=== PATIENT | female | born 1950 | race Two or more races ===

== ENCOUNTER 2021-06-05 12:05 | Inpatient (IN) | payer OTHER ==
[~2021-06-05] VITALS: Ht 157.5 cm; Wt 85.0 kg
[2021-06-05] MEDS ORDERED: SODIUM CHLORIDE 0.9% 1,000 ML IV ONE ×2 (12:30→20:15)
[2021-06-05] MEDS ORDERED: SODIUM CHLORIDE 0.9% 1,000 ML IVB ONE (12:30)
[2021-06-05 13:20] LABS: Basophils # (auto) 0 10 ^3/uL (0-0.2); Basophils % (auto) 0.2 % (0.0-2.0); Eosinophils # (auto) 0 10 ^3/uL (0-0.8); Eosinophils % (auto) 0.1 % (0.0-7.0); Hematocrit 40.7 % (36.0-46.0); Hemoglobin 13.8 g/dL (12.2-16.2); Lymphocytes # (auto) 0.5 10 ^3/uL (0.4-5.4); Lymphocytes % (auto) 6.6 % (10.0-50.0); Mean Corpuscular Hemoglobin 30.5 pg (28.0-32.0); Mean Corpuscular Hgb Conc. 33.9 g/dL (32.0-36.0); Monocytes # (auto) 1.3 10 ^3/uL (0-1.3); Monocytes % (auto) 15.6 % (0.0-12.0); Neutrophils # (auto) 6.3 10 ^3/uL (1.6-8.6); Neutrophils % (auto) 77.5 % (37.0-80.0); Red Blood Cells 4.52 10^6/uL (4.0-5.20); Red Cell Distribution Width 12.8 % (11.8-14.3); White Blood Cell 8.1 10^3/uL (4.4-10.8)
[2021-06-05 13:30] LABS: INR 1.07 (0.9-1.15); Partial Thromboplastin Time 24.4 sec (23.6-33.0)
[2021-06-05 13:33] LABS: Albumin 2.8 g/dL (3.4-5.0); BUN/Creatinine Ratio 42.6; Calcium 7.2 mg/dL (8.5-10.1); Magnesium 2.8 mg/dL (1.6-2.6); Potassium 4.4 mmol/L (3.5-5.1)
[2021-06-05 13:35] LABS: Bilirubin, Total 0.6 mg/dL (0.2-1.0); Total Protein 5.9 g/dL (6.4-8.2)
[2021-06-05 13:37] LABS: Lactic Acid w/Reflex 2.7 mmol/L (0.4-2.0)
[2021-06-05] MEDS: NOREPINEPHRINE 8 MG/250ML KIT 250 ML IV SCH (14:42)
[2021-06-05 14:45] LABS: Urine Bacteria NONE SEEN /hpf (None Seen); Urine Blood Negative /uL (Negative); Urine Hyaline Cast FEW /lpf (0 - 2); Urine Mucus FEW (None Seen); Urine Specific Gravity 1.019 (1.001-1.035); Urine WBC 3 /hpf (0 - 5)
[2021-06-05] MEDS ORDERED: NITROGLYCERIN 0.4 MG SL TAB SL PRN (20:15)
[2021-06-05] MEDS ORDERED: MORPHINE SULFATE INJECTION 2 MG/ML SYRG IV PRN ×2 (20:15)
[2021-06-05] MEDS ORDERED: ONDANSETRON HCL 4 MG/2 ML VIAL IV PRN (20:15)
[2021-06-05 23:45] VITALS: BP 111/35
[2021-06-05 23:54] VITALS: BP 98/36
[2021-06-06] VITALS (91 sets, daily range): BP systolic 84–129; BP diastolic 30–85
[2021-06-06] MEDS ORDERED: NOREPINEPHRINE 8 MG/250ML KIT 250 ML IV ONE ×3 (00:52→14:13)
[2021-06-06] MEDS: NOREPINEPHRINE 8 MG/250ML KIT 250 ML IV SCH ×3 (01:03→19:19)
[2021-06-06 04:58] LABS: Basophils # (auto) 0 10 ^3/uL (0-0.2); Basophils % (auto) 0.2 % (0.0-2.0); Eosinophils # (auto) 0 10 ^3/uL (0-0.8); Eosinophils % (auto) 0.1 % (0.0-7.0); Hemoglobin 13.6 g/dL (12.2-16.2); Lymphocytes # (auto) 0.8 10 ^3/uL (0.4-5.4); Mean Corpuscular Hemoglobin 30.8 pg (28.0-32.0); Mean Corpuscular Hgb Conc. 34.8 g/dL (32.0-36.0); Mean Corpuscular Volume 88.4 fL (80.0-100.0); Monocytes # (auto) 1.4 10 ^3/uL (0-1.3); Monocytes % (auto) 16.3 % (0.0-12.0); Neutrophils # (auto) 6.2 10 ^3/uL (1.6-8.6); Neutrophils % (auto) 73.4 % (37.0-80.0); Nucleated Red Blood Cells % 0.1 %; Red Blood Cells 4.41 10^6/uL (4.0-5.20); Red Cell Distribution Width 13.5 % (11.8-14.3); White Blood Cell 8.4 10^3/uL (4.4-10.8)
[2021-06-06 05:18] LABS: Albumin 2.5 g/dL (3.4-5.0); Calcium 6.9 mg/dL (8.5-10.1); Potassium 4.1 mmol/L (3.5-5.1)
[2021-06-06 05:20] LABS: Bilirubin, Total 0.5 mg/dL (0.2-1.0); Total Protein 5.2 g/dL (6.4-8.2)
[2021-06-06] MEDS ORDERED: CHOL20007 PO (06:56)
[2021-06-06] MEDS ORDERED: LOSA-69 PO (06:56)
[2021-06-06] MEDS ORDERED: ALPR0.5T PO (06:56)
[2021-06-06] MEDS ORDERED: SODIUM CHLORIDE 0.9% 500 ML IV ONE (21:00)
[2021-06-06] MEDS ORDERED: HEPARIN SODIUM (PORCINE) 5000 UNITS/ML 1ML VIAL ONE (23:05)
[2021-06-06] MEDS: HEPARIN SODIUM (PORCINE) 5000 UNITS/ML 1ML VIAL SC SCH (23:11)
[2021-06-06] MEDS: SODIUM CHLORIDE 0.9% 1,000 ML IV SCH (23:13)
[2021-06-07] VITALS (93 sets, daily range): BP systolic 86–144; BP diastolic 11–56
[2021-06-07 03:32] LABS: Basophils # (auto) 0 10 ^3/uL (0-0.2); Basophils % (auto) 0.1 % (0.0-2.0); Eosinophils # (auto) 0 10 ^3/uL (0-0.8); Eosinophils % (auto) 0.1 % (0.0-7.0); Hematocrit 37.5 % (36.0-46.0); Hemoglobin 12.8 g/dL (12.2-16.2); Lymphocytes # (auto) 0.6 10 ^3/uL (0.4-5.4); Lymphocytes % (auto) 6.4 % (10.0-50.0); Mean Corpuscular Hemoglobin 30.6 pg (28.0-32.0); Mean Corpuscular Hgb Conc. 34.3 g/dL (32.0-36.0); Mean Corpuscular Volume 89.3 fL (80.0-100.0); Monocytes # (auto) 1.5 10 ^3/uL (0-1.3); Neutrophils # (auto) 7.5 10 ^3/uL (1.6-8.6); Neutrophils % (auto) 77.4 % (37.0-80.0); Nucleated Red Blood Cells % 0.1 %; Red Cell Distribution Width 13.4 % (11.8-14.3); White Blood Cell 9.7 10^3/uL (4.4-10.8)
[2021-06-07 03:47] LABS: Potassium 3.7 mmol/L (3.5-5.1)
[2021-06-07 03:52] LABS: Albumin 2.1 g/dL (3.4-5.0); BUN/Creatinine Ratio 71.3; Calcium 6.9 mg/dL (8.5-10.1); Magnesium 2.8 mg/dL (1.6-2.6)
[2021-06-07 03:53] LABS: Bilirubin, Total 0.4 mg/dL (0.2-1.0); Phosphorus 3.1 mg/dL (2.5-4.90); Total Protein 4.7 g/dL (6.4-8.2)
[2021-06-07] MEDS: SODIUM CHLORIDE 0.9% 1,000 ML IV SCH ×2 (04:50→12:51)
[2021-06-07] MEDS: PANTOPRAZOLE 40 MG/10 ML VIAL INJ IV SCH (09:56)
[2021-06-07] MEDS ORDERED: SODIUM CHLORIDE 0.9% 1,000 ML IV ONE (10:00)
[2021-06-07] MEDS ORDERED: SODIUM CHLORIDE 0.9% 2,400 ML IV ONE (10:00)
[2021-06-07] MEDS ORDERED: SODIUM CHLORIDE 0.9% 500 ML IV ONE (10:00)
[2021-06-07] MEDS: HEPARIN SODIUM (PORCINE) 5000 UNITS/ML 1ML VIAL SC SCH ×2 (10:05→21:43)
[2021-06-07 13:34] LABS: Anion Gap 8 (5-15); BUN/Creatinine Ratio 65.2; Blood Urea Nitrogen 60 mg/dL (7-18); Calcium 6.9 mg/dL (8.5-10.1); Carbon Dioxide 14 mmol/L (21-32); Chloride 125 mmol/L (98-107); GFR African American 77 mL/min; GFR Non-African American 64 mL/min; Glucose 107 mg/dL (74-106); Potassium 3.5 mmol/L (3.5-5.1); Sodium 147 mmol/L (136-145)
[2021-06-07] MEDS ORDERED: POTASSIUM CHL 20MEQ/100ML 100 ML IV ONE (14:30)
[2021-06-07] MEDS: SOD CHL 0.45% 1,000 ML IV SCH (14:30)
[2021-06-07] MEDS: NOREPINEPHRINE 8 MG/250ML KIT 250 ML IV SCH (16:15)
[2021-06-08] VITALS (79 sets, daily range): BP systolic 102–144; BP diastolic 36–71
[2021-06-08] MEDS: SOD CHL 0.45% 1,000 ML IV SCH ×3 (04:31→22:29)
[2021-06-08 05:47] LABS: Basophils # (auto) 0 10 ^3/uL (0-0.2); Eosinophils # (auto) 0.1 10 ^3/uL (0-0.8); Eosinophils % (auto) 2.2 % (0.0-7.0); Hemoglobin 11.5 g/dL (12.2-16.2); Lymphocytes # (auto) 0.8 10 ^3/uL (0.4-5.4); Mean Corpuscular Hemoglobin 30.2 pg (28.0-32.0); Mean Corpuscular Hgb Conc. 33.8 g/dL (32.0-36.0); Mean Corpuscular Volume 89.2 fL (80.0-100.0); Monocytes # (auto) 0.6 10 ^3/uL (0-1.3); Monocytes % (auto) 9.9 % (0.0-12.0); Neutrophils # (auto) 4.7 10 ^3/uL (1.6-8.6); Neutrophils % (auto) 74.9 % (37.0-80.0); Nucleated Red Blood Cells % 0.1 %; Red Blood Cells 3.81 10^6/uL (4.0-5.20); Red Cell Distribution Width 13.5 % (11.8-14.3); White Blood Cell 6.3 10^3/uL (4.4-10.8)
[2021-06-08 06:11] LABS: Albumin 1.8 g/dL (3.4-5.0); BUN/Creatinine Ratio 63.9; Calcium 7.1 mg/dL (8.5-10.1); Potassium 3.4 mmol/L (3.5-5.1)
[2021-06-08 06:13] LABS: Bilirubin, Total 0.3 mg/dL (0.2-1.0); Total Protein 4.2 g/dL (6.4-8.2)
[2021-06-08] MEDS: HEPARIN SODIUM (PORCINE) 5000 UNITS/ML 1ML VIAL SC SCH ×2 (09:35→21:26)
[2021-06-08] MEDS: POTASSIUM CHL 20MEQ/100ML 100 ML IV SCH ×2 (09:38→12:09)
[2021-06-08] MEDS: PANTOPRAZOLE 40 MG/10 ML VIAL INJ IV SCH ×2 (10:04→21:25)
[2021-06-08] MEDS: NOREPINEPHRINE 8 MG/250ML KIT 250 ML IV SCH (15:50)
[2021-06-08] MEDS: SUCRALFATE 1 GM/10 ML ORAL SUSP GT SCH ×2 (17:00→21:25)
[2021-06-09] VITALS (16 sets, daily range): BP systolic 108–140; BP diastolic 47–68
[2021-06-09] MEDS: SUCRALFATE 1 GM/10 ML ORAL SUSP GT SCH ×2 (06:53→11:13)
[2021-06-09] MEDS: HEPARIN SODIUM (PORCINE) 5000 UNITS/ML 1ML VIAL SC SCH (10:00)
[2021-06-09 10:03] LABS: BUN/Creatinine Ratio 35.6; Calcium 7.6 mg/dL (8.5-10.1); Potassium 3.5 mmol/L (3.5-5.1)
[2021-06-09] MEDS: PANTOPRAZOLE 40 MG/10 ML VIAL INJ IV SCH (11:00)
[2021-06-09] MEDS: NOREPINEPHRINE 8 MG/250ML KIT 250 ML IV SCH (16:15)
== END 2021-06-09 15:45 | disposition home or self-care (01) | DRG 388 ==
LOC: ER 12:05 → TELE 20:06 → UNDOADMOB 20:06 → TELE 20:35 → DOU IN ICU 21:49 → ICU CENTRL 23:31 → DOU IN ICU 06-06 17:09 → ICU CENTRL 06-06 17:35
PROVIDERS: ADMIT Hospitalist; ATTEND Hospitalist
PROC: 05HC33Z Insertion of Infusion Device into Left Basilic Vein, Percutaneous Approach (ICD-10-PCS; principal; 2021-06-06)
PROC: B54NZZA Ultrasonography of Left Upper Extremity Veins, Guidance (ICD-10-PCS; 2021-06-06)
PROC: 0D9670Z Drainage of Stomach with Drainage Device, Via Natural or Artificial Opening (ICD-10-PCS; 2021-06-07)
DX: K56.600 Partial intestinal obstruction, unspecified as to cause (principal); R57.1 Hypovolemic shock; N17.0 Acute kidney failure with tubular necrosis; E87.1 Hypo-osmolality and hyponatremia; N17.9 Acute kidney failure, unspecified; N18.5 Chronic kidney disease, stage 5; E44.0 Moderate protein-calorie malnutrition; G93.49 Other encephalopathy; E87.0 Hyperosmolality and hypernatremia; E11.21 Type 2 diabetes mellitus with diabetic nephropathy; K80.20 Calculus of gallbladder without cholecystitis without obstruction; E66.01 Morbid (severe) obesity due to excess calories; Z20.822 Contact with and (suspected) exposure to COVID-19; I12.9 Hypertensive chronic kidney disease with stage 1 through stage 4 chronic kidney disease, or unspecified chronic kidney disease; E87.6 Hypokalemia; I10 Essential (primary) hypertension; Z83.3 Family history of diabetes mellitus; Z68.33 Body mass index [BMI] 33.0-33.9, adult; Z88.8 Allergy status to other drugs, medicaments and biological substances; Z88.0 Allergy status to penicillin; Z90.710 Acquired absence of both cervix and uterus; Z91.041 Radiographic dye allergy status
CPT/HCPCS: 36415; 71045; 74018; 74176; 76775; 80048; 80053; 81001; 83036; 83605; 83690; 83735; 84100; 84484; 85025; 85610; 85730; 87040; 87081; 87086; 93005; 96360; 96361; 99291; C9113; G0378; J3480

== ENCOUNTER 2023-09-05 06:26 | Inpatient (IN) | payer OTHER ==
[~2023-09-05] VITALS: Ht 157.5 cm; Wt 77.7 kg
[2023-09-05] VITALS (14 sets, daily range): BP systolic 114–158; BP diastolic 65–84; PULSE 65–108; RESP 16–20; TEMP 97.9–98.7; O2SAT 92–98
[2023-09-05] MEDS: FAMOTIDINE (10MG/ML) 2ML VL IV ONE (06:49)
[2023-09-05] MEDS: TRANEXAMIC ACID 20 ML ONE (06:56)
[2023-09-05] MEDS: ROPIVACAINE 0.5% (5MG/ML) 20ML AMPULE IJ ONE (06:56)
[2023-09-05] MEDS: EPINEPHrine HCL 1 MG/1 ML AMP ONE ×2 (06:56→07:05)
[2023-09-05] MEDS ORDERED: ONDANSETRON HCL 4 MG/2 ML VIAL ONE (06:57)
[2023-09-05] MEDS ORDERED: fentaNYL CITRATE 100 MCG/2 ML VL ONE (06:57)
[2023-09-05] MEDS ORDERED: KETOROLAC TROMETH 30 MG/ML 1ML VIAL ONE (06:57)
[2023-09-05] MEDS ORDERED: PROPOFOL 10 MG/ML 20 ML IV ONE (06:57)
[2023-09-05] MEDS ORDERED: MIDAZOLAM HCL 2MG/2ML 2ml VIAL (1mg/ml) ONE (06:57)
[2023-09-05] MEDS ORDERED: GLYCOPYRROLATE 0.2 MG/ML 1ML VIAL ONE (06:57)
[2023-09-05] MEDS ORDERED: MORPHINE SULF PF 5 MG/10 ML VIAL ONE (06:58)
[2023-09-05] MEDS ORDERED: ePHEDrine SULFATE 50 MG/ML AMP ONE (06:58)
[2023-09-05] MEDS ORDERED: KETAMINE 50mg/ML 1ml syringe ONE (06:58)
[2023-09-05] MEDS ORDERED: PHENYLEPHRINE HCL 10 MG/ML VL ONE (06:58)
[2023-09-05] MEDS: ceFAZolin 2 GM/D5W50ml 50 ML IV ONE (07:02)
[2023-09-05] MEDS: BUPIVACAINE HCL 50 ML ONE (08:00)
[2023-09-05] MEDS: VANCOMYCIN HCL 1000 MG VL ONE (09:00)
[2023-09-05] MEDS ORDERED: ACETAMINOPHEN 325 MG TAB PO PRN (09:30)
[2023-09-05] MEDS ORDERED: oxyCODONE HCL 5MG TAB PO PRN ×2 (09:30)
[2023-09-05] MEDS ORDERED: KETOROLAC TROMETH 30 MG/ML 1ML VIAL IV PRN (09:30)
[2023-09-05] MEDS ORDERED: diphenhdrAMINE HCL 50 MG/1 ML VL IV PRN (09:30)
[2023-09-05] MEDS ORDERED: NALOXONE HCL 0.4 MG/ML VIAL IV PRN (09:30)
[2023-09-05] MEDS ORDERED: DexAMETHasone SOD PHOS 10MG/1ML VIAL INJ IV PRN (09:30)
[2023-09-05] MEDS: D5W/LACTATED RINGERS 1,000 ML IV SCH (09:41)
[2023-09-05] MEDS: ceFAZolin 1GM/50ML 100 ML IV ONE (15:01)
[2023-09-05] MEDS: PREGABALIN 25 MG CAP PO SCH (16:34)
[2023-09-05] MEDS: ONDANSETRON HCL 4 MG/2 ML VIAL IV ONE (16:34)
[2023-09-05] MEDS: ACETAMINOPHEN 325 MG TAB PO SCH (16:35)
[2023-09-05] MEDS: KETOROLAC TROMETH 30 MG/ML 1ML VIAL IV SCH (16:35)
[2023-09-05] MEDS: ceFAZolin 2 GM/D5W50ml 50 ML IV SCH (17:39)
[2023-09-05] MEDS ORDERED: DexAMETHasone SOD PHOS 10MG/1ML VIAL INJ IV ONE (18:54)
[2023-09-05] MEDS: ONDANSETRON HCL 4 MG/2 ML VIAL IV PRN (23:20)
[2023-09-06] VITALS (21 sets, daily range): BP systolic 129–174; BP diastolic 61–107; PULSE 70–110; RESP 16–20; TEMP 97.5–98.6; O2SAT 90–100
[2023-09-06 06:18] LABS: Basophils # (auto) 0 10 ^3/uL (0-0.2); Basophils % (auto) 0.6 % (0.0-2.0); Eosinophils # (auto) 0 10 ^3/uL (0-0.8); Eosinophils % (auto) 0.6 % (0.0-7.0); Hematocrit 32.7 % (36.0-46.0); Hemoglobin 11.1 g/dL (12.2-16.2); Lymphocytes # (auto) 0.7 10 ^3/uL (0.4-5.4); Lymphocytes % (auto) 9.6 % (10.0-50.0); Mean Corpuscular Hemoglobin 31.4 pg (28.0-32.0); Mean Corpuscular Volume 92.3 fL (80.0-100.0); Monocytes # (auto) 0.6 10 ^3/uL (0-1.3); Monocytes % (auto) 8.4 % (0.0-12.0); Neutrophils # (auto) 5.8 10 ^3/uL (1.6-8.6); Neutrophils % (auto) 80.8 % (37.0-80.0); Red Blood Cells 3.55 10^6/uL (4.0-5.20); White Blood Cell 7.2 10^3/uL (4.4-10.8)
[2023-09-06 06:26] LABS: Anion Gap 5 (5-15); Carbon Dioxide 25 mmol/L (20-30); Chloride 108 mmol/L (98-107); Potassium 4.1 mmol/L (3.5-5.1); Sodium 138 mmol/L (136-145)
[2023-09-06 06:27] LABS: Calcium 9.1 mg/dL (8.7-10.4)
[2023-09-06 06:32] LABS: BUN/Creatinine Ratio 15.4 (10.0-20.0); Blood Urea Nitrogen 16 mg/dL (9-23); Glucose 121 mg/dL (74-106)
[2023-09-06] MEDS: ASPirin 81 mg TAB PO SCH (08:47)
== END 2023-09-06 18:55 | disposition home or self-care (01) | DRG 470 ==
LOC: SUR 06:26 → TELE 09:27 → TELE-CENTR 15:24
PROVIDERS: ADMIT Orthopaedic Surgery; ATTEND Orthopaedic Surgery
PROC: 0SRD069 Replacement of Left Knee Joint with Oxidized Zirconium on Polyethylene Synthetic Substitute, Cemented, Open Approach (ICD-10-PCS; principal; 2023-09-05 07:23)
DX: M17.12 Unilateral primary osteoarthritis, left knee (principal); Z88.0 Allergy status to penicillin; Z88.5 Allergy status to narcotic agent; Z91.041 Radiographic dye allergy status
CPT/HCPCS: 36415; 73562; 80048; 85025; 86850; 86900; 86901; 97116; 97163; 97530; G0378; J0171; J1100; J1885; J2250; J2405; J2704; J3490